=== PATIENT | male | born 1990 | race Caucasian/White ===

== ENCOUNTER 2016-08-22 21:30 | Emergency (ER) | payer OTHER ==
[~2016-08-22 21:30] MED LIST: AUGMENTIN PO; BACTRIM DS TABL1 TA1 PO; BACTRIM DS TABL1 TA2 PO; BACTRIM DS TABL1 TAB PO; CLEOCIN150 M1 PO; CUBICIN IV; DOXYCYCLINE PO; HYDROCODON-ACE1 EAC9 PO; IBUPROFEN600 MG PO; KEFLEX PO; KEFLEX500 MG PO; LORTAB 7.5-3251 EACH PO; LORTAB 7.51 TAB PO; NO MEDICATIONS; PERCOCET PO; PERCOCET5/325 PO; RIFAMPIN300 M1 PO; TYLENOL #3 PO; ULTRAM PO; VICODIN 5/1 TAB 5/50 PO; ZYVOX600 MG PO
== END 2016-08-22 21:45 | disposition home or self-care (01) ==
LOC: CED 21:30
DX: Z53.21 Procedure and treatment not carried out due to patient leaving prior to being seen by health care provider (principal)

== ENCOUNTER 2017-01-23 13:01 | Emergency (ER) | payer OTHER ==
--- NOTE | ~2017-01-23 | CR72 ---
[facility] A Service of [facility] & [facility] RADIOLOGY TEXT RESULTS PATIENT: IVY BRASHER LOCATION: SED : [birth year] UNIT #: [id number] AGE: [address]: Josef Sauer MD SEX: M ORDER DR: [id number] [address] [address] [id number] MR#: [id number] Acc #: [id number] NAME: IVY BRASHER : 1990 SEX: M STUDY DATE/TIME: 01/23/2017 13:53 UNIT: SED ROOM: STUDY DESCRIPTION: CR Chest Single View Portable Attending Physician: Ellen Carson Ordering Physician: Ellen Carson Primary Care Physician: Primary Care Physician No MEDICAL IMAGING REPORT This report is preliminary unless electronic signature is present. EXAM Portable chest, 01/23/2017 HISTORY 27-year-old male patient short of air, chest pain noted today. COMPARISON Chest, 10/22/2009 FINDINGS AP upright portable chest demonstrates normal cardiac size and configuration. Hilar structures and mediastinal contours are preserved. Bilateral lungs are expanded and clear. Costophrenic angles are clear. IMPRESSION Negative portable chest. Dictated by... Kin Vinson M.D. THIS IS AN ELECTRONICALLY VERIFIED REPORT Kin Vinson M.D. at 01/23/2017 3:55 PM Christopher TD: 01/23/2017 14:49 JOB #: [id number] MEDICAL IMAGING REPORT Page 1 of 1
[2017-01-23 14:11] LABS: BASOPHIL# 0.1 X10e3 (0-0.3); BASOPHIL% 0.6 % (0-2.5); EOSINOPHIL# 0.2 X10e3 (0-0.7); EOSINOPHIL% 1.5 % (0.0-7.0); HEMATOCRIT 38.6 % (38.0-50.0); HEMOGLOBIN 13.5 gm/dL (13.0-16.0); LYMPHOCYTE# 1.3 X10e3 (1.0-3.5); LYMPHOCYTE% 10.6 % (17.0-45.0); MEAN CELL VOLUME 84.5 FL (83-96); MEAN CORPUSCULAR HEMOGLOBIN 29.6 PG (28-34); MEAN CORPUSCULAR HGB CONC 35.1 g/dL (30-36); MEAN PLATELET VOLUME 7.6 FL (6.5-11.5); MONOCYTE# 1.5 X10e3 (0-1.0); MONOCYTE% 12.5 % (3.0-12.0); NEUTROPHIL# 9.2 X10e3 (1.5-7.1); NEUTROPHIL% 74.8 % (40-75); PLATELET COUNT 206 X10e3 (140-420); RED BLOOD COUNT 4.57 X10e (3.90-5.60); RED CELL DISTRIBUTION WIDTH 14.4 % (11.0-15.5); WHITE BLOOD COUNT 12.3 X10e3 (4.0-10.5)
[2017-01-23 14:15] LABS: DIFF IND NO
[2017-01-23 14:33] LABS: ARTERIAL BLD GAS O2 SATURATION 95.4 % (90.0-100.0); ARTERIAL BLOOD GAS CARBOXY HB 2.4 %sat (0.0-9.0); ARTERIAL BLOOD GAS HCO3 22.5 mmol/L
[2017-01-23 14:35] LABS: ARTERIAL BLOOD GAS ALLEN TEST NORMAL; ARTERIAL BLOOD GAS ART SITE LEFT RADIAL; ARTERIAL DRAW? YES
[2017-01-23 14:54] LABS: ALKALINE PHOSPHATASE 80 U/L (32-92); ALT (SGPT) 440 U/L (10-40); AST (SGOT) 219 U/L (10-42); BILIRUBIN, DIRECT 0.6 mg/dL (0.0-0.2); BILIRUBIN,INDIRECT 2.9 mg/dL (0.0-0.9); BILIRUBIN,TOTAL 3.5 mg/dL (0.2-2.0); BLOOD UREA NITROGEN 34 mg/dL (9-23); BUN/CREATININE RATIO 24.28; CALCIUM SERUM 8.8 mg/dL (8.4-10.2); CARBON DIOXIDE 20 mmol/L (22-31); CHLORIDE 99 mmol/L (100-111); CREATININE SERUM 1.4 mg/dL (0.6-1.4); GLOM FILT RATE Estimated 67.4 mL/min (>60); GLUCOSE FASTING 73 mg/dL (70-110); POTASSIUM 3.5 mmol/L (3.5-5.1); SALICYLATE <4.0 mg/dL; SODIUM 136 mmol/L (135-145)
[2017-01-23 14:55] LABS: ACETAMINOPHEN <10 ug/mL; ALCOHOL BLOOD <5 mg/dL ([, 0])
== END 2017-01-23 22:09 | disposition home or self-care (01) ==
LOC: SED 13:01
PROVIDERS: Physician Assistant
DX: F15.121 Other stimulant abuse with intoxication delirium (principal); F17.200 Nicotine dependence, unspecified, uncomplicated
CPT/HCPCS: 36415; 36600; 71010; 80048; 80076; 82803; 85025; 96360; 96361; 96372; 99284; G0480; J2250